=== PATIENT | male | born 1955 | race Two or more races ===

== ENCOUNTER → 2017-09-26 | Outpatient (CLI) | payer BC ==
[~2017-09-26] MED LIST: METF500 PO; NAPR500 PO
[2017-09-26 19:56] LABS: BASOPHILS ABSOLUTE AUTO 0.02 K/mm3 (0.00-0.23); BASOPHILS PERCENT AUTO 0 % (0-2); EOSINOPHILS ABSOLUTE AUTO 0.07 K/mm3 (0.00-0.68); EOSINOPHILS PERCENT AUTO 1 % (0-6); Hemoglobin 13.1 g/dL (13.5-17.5); IMMATURE GRAN ABSOLUTE AUTO 0.01 K/mm3 (0.00-0.10); IMMATURE GRAN PERCENT AUTO 0 % (0-1); LYMPHOCYTES ABSOLUTE AUTO 1.76 K/mm3 (0.84-5.20); LYMPHOCYTES PERCENT AUTO 35 % (21-46); MONOCYTES ABSOLUTE AUTO 0.31 K/mm3 (0.16-1.47); MONOCYTES PERCENT AUTO 6 % (4-13); Mean Corpuscular HGB 30.1 pg (26.0-34.0); Mean Corpuscular HGB Conc 32.8 g/dL (31.5-36.5); Mean Corpuscular Volume 92 fL (80-100); Mean Platelet Volume 10.2 fL (9.1-12.4); NEUTROPHILS ABSOLUTE AUTO 2.83 K/mm3 (1.96-9.15); NEUTROPHILS PERCENT AUTO 57 % (41-73); Platelet Count 274 K/mm3 (150-400); RDW Coefficient Variation 13.1 % (11.7-14.2); RDW Standard Deviation 44.1 fL (35.1-46.3); Red Blood Cell Count 4.35 M/mm3 (4.30-5.90)
[2017-09-26 20:46] LABS: Alanine Aminotransfer (ALT/SGP 33 U/L (12-78); Albumin, Blood 3.8 g/dL (3.4-5.0); Albumin/Globulin Ratio 1.1 (0.8-1.8); Alk Phos 125 U/L (50-136); Anion Gap 10 mmol/L (6-16); Aspartate Aminotrans (AST/SGOT 20 U/L (12-37); Bilirubin, Total 0.4 mg/dL (0.1-1.0); Blood Urea Nitrogen 16 mg/dL (8-24); Bun/Creatinine Ratio 24.8 (12.0-20.0); CHOL/HDL RATIO 6.4; CO2, Blood 23 mmol/L (21-32); Calcium, Blood 8.7 mg/dL (8.5-10.1); Chloride, Blood 107 mmol/L (98-108); Cholesterol 257 mg/dL (50-200); Creatinine, Blood 0.64 mg/dL (0.60-1.20); Globulin, Blood 3.5 g/dL (2.2-4.0); Glomerular Filtration Rate >60 (60-); Glucose, Blood 187 mg/dL (70-99); HDL Cholesterol 40 mg/dL (>39); LDL/HDL RATIO 3.5; Low Density Lipoprotein Chol 140 mg/dL (0-110); Sodium, Blood 140 mmol/L (136-145); Total Protein, Blood 7.3 g/dL (6.4-8.2); Triglycerides 383 mg/dL (30-160); Very Low Density Lipoprot Chol 76 mg/dL (6-32)
== END | disposition home or self-care (01) ==
LOC: LAB 16:38 → LAB SHORT 16:38
PROVIDERS: Nurse Practitioner Family
DX: E11.9 Type 2 diabetes mellitus without complications (principal)
CPT/HCPCS: 80053; 80061; 83036; 85025

== ENCOUNTER → 2023-01-12 | Outpatient (CLI) | payer MEDICARE, OTHER ==
[2023-01-12 12:04] LABS: BASOPHILS ABSOLUTE AUTO 0.04 K/mm3 (0.00-0.23); BASOPHILS PERCENT AUTO 1 % (0-2); EOSINOPHILS ABSOLUTE AUTO 0.07 K/mm3 (0.00-0.68); EOSINOPHILS PERCENT AUTO 1 % (0-6); Hematocrit 38.1 % (37.0-53.0); Hemoglobin 12.7 g/dL (13.5-17.5); IMMATURE GRAN ABSOLUTE AUTO 0.02 K/mm3 (0.00-0.10); IMMATURE GRAN PERCENT AUTO 0 % (0-1); LYMPHOCYTES ABSOLUTE AUTO 1.74 K/mm3 (0.84-5.20); LYMPHOCYTES PERCENT AUTO 35 % (21-46); MONOCYTES ABSOLUTE AUTO 0.33 K/mm3 (0.16-1.47); MONOCYTES PERCENT AUTO 7 % (4-13); Mean Corpuscular HGB 30.9 pg (26.0-34.0); Mean Corpuscular HGB Conc 33.3 g/dL (31.5-36.5); Mean Corpuscular Volume 93 fL (80-100); Mean Platelet Volume 10.5 fL (9.1-12.4); NEUTROPHILS ABSOLUTE AUTO 2.73 K/mm3 (1.96-9.15); NEUTROPHILS PERCENT AUTO 55 % (41-73); Platelet Count 287 K/mm3 (150-400); RDW Coefficient Variation 13.3 % (11.7-14.2); RDW Standard Deviation 45.1 fL (35.1-46.3); Red Blood Cell Count 4.11 M/mm3 (4.30-5.90); White Blood Cell Count 4.93 K/mm3 (4.00-11.30)
[2023-01-12 12:47] LABS: Alanine Aminotransfer (ALT/SGP 28 U/L (12-78); Albumin, Blood 3.6 g/dL (3.4-5.0); Alk Phos 114 U/L (50-136); Anion Gap 7 mmol/L (6-16); Aspartate Aminotrans (AST/SGOT 12 U/L (12-37); Bilirubin, Total 0.3 mg/dL (0.1-1.0); Blood Urea Nitrogen 20 mg/dL (8-24); Bun/Creatinine Ratio 29.5 (12.0-20.0); CO2, Blood 21 mmol/L (21-32); Calcium, Blood 8.9 mg/dL (8.5-10.1); Chloride, Blood 116 mmol/L (98-108); Cholesterol 209 mg/dL (50-200); Creatinine, Blood 0.68 mg/dL (0.60-1.20); Globulin, Blood 3.5 g/dL (2.2-4.0); Glomerular Filtration Rate 103 (60-); Glucose, Blood 113 mg/dL (70-99); HDL Cholesterol 35 mg/dL (>39); LDL/HDL RATIO 3.2; Low Density Lipoprotein Chol 113 mg/dL (0-110); Potassium, Blood 4.1 mmol/L (3.5-5.5); Sodium, Blood 144 mmol/L (136-145); Total Protein, Blood 7.1 g/dL (6.4-8.2); Triglycerides 305 mg/dL (30-160); Very Low Density Lipoprot Chol 61 mg/dL (6-32)
[2023-01-12 14:19] LABS: Creatinine, Urine Random 84.5 mg/dL (27.00-270.00)
[2023-01-12 14:22] LABS: Microalb/Creat Ratio UR, Rand 14.083 mg/g (0.000-30.000); Microalbumin, Random Urine 11.9 mg/L (0.000-20.000)
== END ==
LOC: LAB 10:53 → LAB SHORT 10:53
PROVIDERS: Family Medicine
DX: E11.9 Type 2 diabetes mellitus without complications (principal)
CPT/HCPCS: 80053; 80061; 82043; 82570; 85025

== ENCOUNTER 2023-04-17 08:12 | Day surgery (SDC) | payer MEDICARE, OTHER ==
[2023-04-17] VITALS (18 sets, daily range): BP systolic 84–129; BP diastolic 35–77
[~2023-04-17] VITALS: Ht 160 cm; Wt 76.1 kg
[~2023-04-17 08:12] MED LIST changes: +Crestor40 MG PO; +FARXIGA5 MG PO; +INSULANI INJ; +Prinivil10 MG PO
--- NOTE | 2023-04-17 09:03 | NUR ---
Patient up to Ambulate independently. Gait steady. History, Chart, Medications and Allergies reviewed before start of procedure. Lungs clear T/O to Auscultation. Patient confirms NPO status and agrees with scheduled surgery. Patient States Post-Procedure ride home has been arranged WITH FRIEND LEEROY.
--- NOTE | 2023-04-17 09:24 | NUR ---
04/17/23 0924 Dulce Maria Rockwell HISTORY, CHART, MEDICATIONS AND ALLERGIES REVIEWED BEFORE START OF PROCEDURE. PATIENT CONFIRMS NPO STATUS AND AGREES WITH SCHEDULED PROCEDURE. 3-LEAD EKG REVIEWED WITH PHYSICIAN PRIOR TO START OF PROCEDURE. MONITOR INTACT WITH CONTINUOUS PULSE OXIMETRY,CAPNOGRAPHY, 3-LEAD EKG, INTERMITTENT BP. SUPPLEMENTAL O2 TO BE TITRATED THROUGHOUT PROCEDURE TO MAINTAIN O2 SATURATION ABOVE 90%. PATIENT DETERMINED TO BE ASA APPROPRIATE FOR PROPOFOL SEDATION PRIOR TO START OF PROCEDURE BY .
--- NOTE | 2023-04-17 10:05 | NUR ---
DR ROUSSEAU AT BEDSIDE REVIEWING RESULTS OF COLONOSCOPY AND SPEAKING TO PATIENT ABOUT NEXT COLONOSCOPY TO BE DONE IN 5 YEARS.
--- NOTE | 2023-04-17 10:24 | NUR ---
Discharge instructions reviewed with patient. Patient verbalizes understanding. Copy given to patient to take home. Patient states he has no questions after reviewing discharge instructions. Patient declines something to drink. No c/o verbalized. Denies pain or nausea. VSS. Patient States Post-Procedure ride home has been arranged with
--- NOTE | 2023-04-17 10:27 | NUR ---
GAIT STEADY. PATIENT DENIES DIZZINESS UPON STANDING.
[2023-04-18] MEDS ORDERED: ONDA4ODT MM (14:23)
== END 2023-04-17 10:33 | disposition home or self-care (01) ==
LOC: ORSCMMR 08:12 → ORD 09:00 → ORSCMMR 10:33
PROVIDERS: Internal Medicine Gastroenterology
PROC: 0DBK8ZX Excision of Ascending Colon, Via Natural or Artificial Opening Endoscopic, Diagnostic (ICD-10-PCS; principal; 2023-04-17 09:00)
PROC: 0DBM8ZX Excision of Descending Colon, Via Natural or Artificial Opening Endoscopic, Diagnostic (ICD-10-PCS; principal; 2023-04-17 09:00)
DX: Z12.11 Encounter for screening for malignant neoplasm of colon (principal); K63.5 Polyp of colon; K57.30 Diverticulosis of large intestine without perforation or abscess without bleeding; E11.9 Type 2 diabetes mellitus without complications; I10 Essential (primary) hypertension; E78.00 Pure hypercholesterolemia, unspecified; Z79.84 Long term (current) use of oral hypoglycemic drugs; Z79.4 Long term (current) use of insulin; F17.210 Nicotine dependence, cigarettes, uncomplicated; Z79.899 Other long term (current) drug therapy
CPT/HCPCS: 82947; 88305; J2704; J7120

== ENCOUNTER 2023-04-18 09:17 | Emergency (ER) | payer MEDICARE, OTHER ==
[~2023-04-18] VITALS: Ht 160 cm; Wt 74.8 kg
[2023-04-18 10:04] LABS: BASOPHILS ABSOLUTE AUTO 0.03 K/mm3 (0.00-0.23); BASOPHILS PERCENT AUTO 0 % (0-2); EOSINOPHILS ABSOLUTE AUTO 0.02 K/mm3 (0.00-0.68); EOSINOPHILS PERCENT AUTO 0 % (0-6); Hematocrit 40.3 % (37.0-53.0); Hemoglobin 13.4 g/dL (13.5-17.5); IMMATURE GRAN ABSOLUTE AUTO 0.02 K/mm3 (0.00-0.10); IMMATURE GRAN PERCENT AUTO 0 % (0-1); LYMPHOCYTES ABSOLUTE AUTO 1.73 K/mm3 (0.84-5.20); LYMPHOCYTES PERCENT AUTO 19 % (21-46); MONOCYTES ABSOLUTE AUTO 0.72 K/mm3 (0.16-1.47); MONOCYTES PERCENT AUTO 8 % (4-13); Mean Corpuscular HGB 30.4 pg (26.0-34.0); Mean Corpuscular HGB Conc 33.3 g/dL (31.5-36.5); Mean Corpuscular Volume 91 fL (80-100); Mean Platelet Volume 9.7 fL (9.1-12.4); NEUTROPHILS ABSOLUTE AUTO 6.39 K/mm3 (1.96-9.15); NEUTROPHILS PERCENT AUTO 72 % (41-73); Platelet Count 265 K/mm3 (150-400); RDW Coefficient Variation 12.7 % (11.7-14.2); RDW Standard Deviation 42.3 fL (35.1-46.3); Red Blood Cell Count 4.41 M/mm3 (4.30-5.90); White Blood Cell Count 8.91 K/mm3 (4.00-11.30)
[2023-04-18 10:33] LABS: Albumin, Blood 3.8 g/dL (3.4-5.0); Bilirubin, Total 0.3 mg/dL (0.1-1.0); Bun/Creatinine Ratio 14.7 (12.0-20.0); Calcium, Blood 10.2 mg/dL (8.5-10.1); Creatinine, Blood 1.97 mg/dL (0.60-1.20); Globulin, Blood 3.7 g/dL (2.2-4.0); Potassium, Blood 4.3 mmol/L (3.5-5.5); Total Protein, Blood 7.5 g/dL (6.4-8.2)
[2023-04-18 12:03] LABS: Source, Urine Clean Catch
[2023-04-18 12:05] LABS: Appearance, Urine Clear (Clear); Bilirubin, Urine Neg (Neg); Blood, Urine Neg (Neg); Glucose Qualitative, Urine 4+ (Neg); Ketones, Urine Neg (Neg); Leukocyte Esterase, Urine Neg (Neg); Nitrite, Urine Neg (Neg); Protein, Urine Neg (Neg); Urobilinogen, Urine NORM (Normal)
[2023-04-18 12:27] LABS: Color, Urine Pale Yellow (P-Yellow)
[2023-04-18 13:40] LABS: Calcium, Ionized (POC) 1.32 mmol/L (1.10-1.46); Chloride (POC) 111 mmol/L (98-108); Creatinine (POC) 2.1 mg/dL (0.8-1.3); Glucose (ISTAT POC) 85 mg/dL (70-99); Hemoglobin (POC) 12.6 g/dL (13.5-17.5); Sodium (POC) 143 mmol/L (135-148); Total CO2 (POC) 21 mmol/L (21-32)
[2023-04-18] MEDS ORDERED: ONDA4ODT MM (14:23)
[2023-04-18 14:30] VITALS: BP 133/80
== END 2023-04-18 14:38 | disposition home or self-care (01) ==
LOC: ER 09:17
PROVIDERS: Emergency Medicine; Student in an Organized Health Care Education/Training Program
DX: R11.2 Nausea with vomiting, unspecified (principal); N17.9 Acute kidney failure, unspecified; E11.9 Type 2 diabetes mellitus without complications; I10 Essential (primary) hypertension; E78.5 Hyperlipidemia, unspecified; Z79.4 Long term (current) use of insulin; Z79.84 Long term (current) use of oral hypoglycemic drugs; Z79.899 Other long term (current) drug therapy; F17.210 Nicotine dependence, cigarettes, uncomplicated; Z98.890 Other specified postprocedural states
CPT/HCPCS: 51798; 80047; 80053; 81003; 83690; 85014; 85025; 96361; 96374; 99283-25; A9270; J2405; J7030

== ENCOUNTER → 2023-05-04 | Outpatient (CLI) | payer MEDICARE, OTHER ==
[~2023-05-04] MED LIST changes: +ONDA4ODT MM
[2023-05-04 13:50] LABS: Protein, Urine Quantitative <5.0 mg/dL (0.0-11.9)
== END ==
LOC: LAB SHORT 11:00 → LAB 11:00
PROVIDERS: Internal Medicine Nephrology
DX: E11.22 Type 2 diabetes mellitus with diabetic chronic kidney disease (principal); N18.4 Chronic kidney disease, stage 4 (severe); D63.1 Anemia in chronic kidney disease
CPT/HCPCS: 81050; 82043; 82570; 84156